=== PATIENT | male | born 1940 | race Caucasian/White ===

== ENCOUNTER → 2019-02-16 | Outpatient (CLI) | payer MEDICARE ==
[~2019-02-16] MED LIST: ZOLPIDEM 5 MG TABLET. PO ONE
--- NOTE | 2019-02-17 14:01 | SLEEP ---
DATE OF STUDY: 02/16/2019 OBJECTIVE: The patient is a 78-year-old male here for a CPAP titration study. Height 73 inches, weight 190 pounds, body mass index 25.1. INTERPRETATION: Sleep architecture is characterized by sleep efficiency of 58% across the 7.4 hours of recording time. There is absence of slow-wave sleep. Sleep onset latency is 51.5 minutes. On this CPAP titration study, a total of 21 events are recorded. Minimum oxygen saturation is 88%. Periodic limb movements of sleep occur at the rate of 7.9 events per hour, 1.9 events per hour associated with arousal. No significant cardiac arrhythmias are observed. The patient is started on CPAP and on a setting of 15 cm, the apnea/hypopnea index is 0.5 events per hour of sleep. IMPRESSION: Successful CPAP titration using 15 cm of CPAP using a ResMed full face mask, Quattro, medium size. RECOMMENDATIONS: The patient should be established on this CPAP setting. He should avoid sedatives and alcohol and pursue weight loss. Thank you for letting us help with the patient's care. JUAN FOREMAN MD DR: DANI/bia JOB#: [id number] / [id number] [address]
== END | disposition home or self-care (01) ==
LOC: SLPLAB 19:00
PROVIDERS: ATTEND Preventive Medicine Public Health & General Preventive Medicine
DX: G47.33 Obstructive sleep apnea (adult) (pediatric) (principal)
CPT/HCPCS: 95810; 95811